=== PATIENT | female | born 1985 | race Caucasian/White ===

== ENCOUNTER 2019-08-27 05:24 | Inpatient (IN) ==
--- NOTE | 2019-08-24 17:58 | History and Physical Report ---
DATE OF ADMISSION: 08/27/2019 REASON FOR ADMISSION: Scheduled repeat section. BRIEF HISTORY: Francois is a 33-year-old G2, P1-0-0-1, currently at 38 weeks 6 days gestational age with planned section at 39 weeks 1 day gestational age. The patient presents today for preoperative visit for planned repeat low transverse section with history of one prior section. The patient's course has been otherwise complicated by history of a TIA and has been on Lovenox and is currently on heparin t.i.d. The patient reports that her prior was uncomplicated. The patient is denying any regular contractions, vaginal bleeding or leakage of fluid today and is reporting good movement. COURSE: The patient presented for care at approximately 7 weeks' gestational age. She has been normotensive throughout. She has had occasional trace proteinuria, negative glucosuria. has been complicated by history of TIA as noted above and is currently on heparin t.i.d. and was previously on Lovenox with planned Lovenox. The patient also had a prior low transverse section x1 and does desire repeat. OBSTETRICS AND GYNECOLOGIC HISTORY: The patient reports 1 prior with term delivery via . PAST MEDICAL HISTORY: Significant for prior TIA as noted above. PAST SURGICAL HISTORY: Notable for: 1. Prior . 2. Cholecystectomy. 3. Endoscopy. FAMILY HISTORY: Noncontributory to current admission. SOCIAL HISTORY: The patient denies current tobacco, alcohol or illicit drug use. PHYSICAL EXAMINATION: VITAL SIGNS: Blood pressure today 124/80. GENERAL: The patient is well appearing in no acute distress, alert and oriented x3. CARDIAC: Showed normal rate and rhythm. LUNGS: Showed no labored breathing. ABDOMEN: Soft, nontender, gravid with fundal height measuring 38 cm. heart rate was measured at 145 beats per minute. Prior Pfannenstiel incision noted. LOWER EXTREMITIES: Unremarkable bilaterally. ASSESSMENT AND PLAN: Francois is a 33-year-old 2, para 1-0-0-1 who presented for a scheduled repeat section with prior low transverse section. 1. Fetus: Reassuring heart tones today. We will obtain NST prior to proceeding to the operating room. 2. Delivery: Plan for repeat section as noted above. Consents were reviewed and signed in clinic today. We will plan for Ancef for antibiotic. 3. hemorrhage risk: Considered moderate risk. We will collect CBC and type and cross for 1 unit. Vitals within normal limits today.
[2019-08-27] MEDS ORDERED: CEFAZOLIN 2,000 MG in SYRINGE 0 ML IV SCH (06:00)
[2019-08-27] MEDS ORDERED: LACTATED RINGER'S 1,000 ML IV SCH (06:00)
[2019-08-27] MEDS ORDERED: CITRIC ACID/SODIUM CITRATE 15 ML UDC PO SCH (06:00)
[2019-08-27] MEDS ORDERED: SODIUM CHLORIDE 0.9% 250 ML IV PRN (07:11)
[2019-08-27 07:19] LABS: Basophils # (auto) 0.02 K/uL (0-0.2); Basophils % (auto) 0.2 %; Eosinophils # (auto) 0.23 K/uL (0-0.5); Eosinophils % (auto) 2.8 %; Hematocrit (blood only) 37.7 % (37-47); Immature Granulocytes # (auto) 0.08 K/uL (0.00-0.02); Lymphocytes # (auto) 1.88 K/uL (1.2-3.4); Lymphocytes % (auto) 22.6 %; Mean Corpuscular Hemoglobin 27.7 pg (25-34); Mean Corpuscular Volume 87.1 fL (80-100); Mean Platelet Volume 9.8 fL (7.4-10.4); Monocytes # (auto) 0.74 K/uL (0.11-0.59); Monocytes % (auto) 8.9 %; Neutrophils # (auto) 5.37 K/uL (1.4-6.5); Neutrophils % (auto) 64.5 %; Platelet Count 225 K/uL (130-400); RDW Coefficient of Variation 13.6 % (11.5-14.5); RDW Standard Deviation 42.9 fL (36.4-46.3); Red Blood Count 4.33 M/uL (4.2-5.4); White Blood Count 8.32 K/uL (4.8-10.8)
--- NOTE | 2019-08-27 07:19 | History & Physical Bridge Note ---
Date of Service August 27, 2019 History & Physical Bridge Note I have examined the patient, reviewed the History & Physical and in the interval since the performance of the History & Physical I have noted the following changes of clinical significance: no changes noted
[2019-08-27] MEDS ORDERED: OXYTOCIN 10 UNITS/ML VIAL ONE ×2 (07:26→08:32)
[2019-08-27] MEDS ORDERED: fentaNYL citrate 100 MCG/2 ML VIAL ONE (07:27)
[2019-08-27] MEDS ORDERED: MoRPHine SULFATE PF 1 MG/ML 10 ML AMP/VIAL ONE (07:27)
[2019-08-27 07:44] LABS: Mean Corpuscular Hgb Conc 31.8 g/dL (32-36)
[2019-08-27] MEDS ORDERED: PHENYLEPHRINE 100MCG/ML 5ML SYR ONE (08:08)
[2019-08-27] MEDS ORDERED: SENNA 8.6 MG TAB PO PRN (08:47)
[2019-08-27] MEDS ORDERED: BENZOCAINE 20% AER SPR 82.5 GM CAN EXT PRN (08:47)
[2019-08-27] MEDS ORDERED: DiphenhydrAMINE HCL 50 MG/ML VIAL IV PRN ×2 (08:47→11:16)
[2019-08-27] MEDS ORDERED: HYDROCORTISONE ACETATE 25 MG SUPP PR PRN (08:47)
[2019-08-27] MEDS ORDERED: MAGNESIUM HYDROXIDE SUSP 30 ML UDC PO PRN (08:47)
[2019-08-27] MEDS ORDERED: DIPHTHERIA/TETANUS/PERTUSSIS 0.5 ML SYR/VIAL IM ONE (08:47)
[2019-08-27] MEDS ORDERED: PROMETHAZINE HCL 25 MG in SODIUM CHLORIDE 0.9% 50 ML IV PRN ×2 (08:47→11:16)
[2019-08-27] MEDS ORDERED: ONDANSETRON INJ 2 MG/ML 2 ML VIAL IV PRN ×2 (08:47→11:16)
[2019-08-27] MEDS ORDERED: SUPERCREAM 0.870% 15 GM JAR EXT PRN (08:47)
--- NOTE | 2019-08-27 08:47 | Post Operative Brief Note ---
PG Immediate Post Op with CF Date of Surgery August 27, 2019 Pre & Post Diagnosis Operation Date: 08/27/19 07:30 <No data on this case meets the specified criteria> I identified the patient and participated in the time-out.: Yes Procedure Operation Date: 08/27/19 07:30 Actual Procedures p Section in LD - Tereso Horne MD Surgeon Tereso Horne MD Architectural Draftsperson Dr Bangura Estimated Blood Loss 600 Findings Consistent with Post-Op Diagnosis Drains Scanlon Catheter
--- NOTE | 2019-08-27 09:41 | Anesthesiology Progress Note ---
Date of Service August 27, 2019 Anesthesia Post Procedure Vital Signs Vital Signs: Temp Pulse Resp BP Pulse Ox 08/27/19 09:40 88 111/68 96 08/27/19 09:36 94 H 94 08/27/19 09:35 95 H 97 08/27/19 09:30 104 H 119/81 95 08/27/19 09:25 96 H 97 08/27/19 09:20 108 H 115/69 98 08/27/19 09:15 106 H 97 08/27/19 09:10 105 H 112/66 96 08/27/19 09:05 100 H 18 95 08/27/19 09:00 95 H 116/61 98 08/27/19 08:55 36.5 C 94 H 18 110/56 L 97 08/27/19 07:55 36.8 C 08/27/19 05:40 36.8 C 125 H 18 125/87 Transfer of Care Handoff Completed per policy Notes Mental Status: alert / awake / arousable Patient Amnestic to Procedure: Yes Nausea / Vomiting: adequately controlled Pain: adequately controlled Airway Patency, RR, SpO2: stable & adequate BP & HR: stable & adequate Hydration State: stable & adequate Neuraxial Anesthesia: was administered and sensory block is resolving Anesthetic Complications: no major complications apparent
[2019-08-27] MEDS: KETOROLAC 30 MG/ML VIAL IV PRN ×3 (10:02→23:30)
[2019-08-27] MEDS ORDERED: ACETAMINOPHEN 1,000 MG/100 ML VIAL IV STA (10:30)
--- NOTE | 2019-08-27 10:51 | Operative Report (OR) ---
DATE OF OPERATION: 08/27/2019 PROCEDURE: Repeat low transverse section. SURGEON: Tereso Horne MD. CRITICAL POWER INSTALL TECHNICIAN: Dr. Jed Bangura. PREOPERATIVE DIAGNOSES: 1. Single intrauterine at 39+ weeks gestational age. 2. History of prior section, desiring repeat. 3. History of transient ischemic attack on Lovenox. POSTOPERATIVE DIAGNOSES: 1. Single intrauterine at 39+ weeks gestational age. 2. History of prior section, desiring repeat. 3. History of transient ischemic attack on Lovenox. 4. Status post delivery. ESTIMATED BLOOD LOSS: 600 mL. DRAINS: Scanlon catheter. FLUIDS: Continuous lactated ringer. URINE OUTPUT: Per Scanlon catheter. COMPLICATIONS: None. FINDINGS: Viable male infant with weight of 7 pounds 8.8 ounces and Apgars of 7 and 8 at 1 and 5 minutes respectively. DESCRIPTION OF PROCEDURE: The patient was taken to the operating room after consents were ensured. Upon presentation, she was properly identified. Spinal anesthesia was obtained without difficulty. The patient was then prepped and draped in normal sterile fashion. A preprocedural timeout was performed. A Pfannenstiel incision was then made with a knife. This was carried down to underlying fascia with the Bovie. The fascia was nicked at the midline with a knife. The fascia was then extended laterally in each direction with pickups and Chavez scissors. The Kochers were then used to grasp the superior aspect of the fascia, which was dissected off the underlying rectus muscles using blunt dissection and the knife. The inferior aspect of the fascia was then grasped with Kochers x2 and elevated off the underlying rectus muscles using blunt dissection and Chavez scissors. A midline was then entered bluntly and noted to be free of adhesions. Abdomen was then placed on stretch to make adequate room for delivery. A bladder blade was then inserted and the bladder flap was created. A low transverse uterine incision was then made with a knife. The head of the was just noted to be in cephalic position and was delivered through the hysterotomy without difficulty. Body and shoulders quickly followed. was noted to be vigorous soon after delayed delivery. Cord was then double clamped and cut. Cord blood was obtained. Attention was then turned to deliver the placenta, which was delivered intact with 3-vessel cord with gentle cord traction and uterine massage. The uterus was exteriorized and several passes were made to remove any remaining membranes with a wet lap. The hysterotomy was then closed with 0 Vicryl with a continuous running locked stitch. A second imbricating layer was then performed. The hysterotomy was noted to be hemostatic. The uterus was then replaced and dissected. The posterior cul-de-sac was cleaned of clots and debris and the uterus was returned to the maternal abdomen. The right and left pericolic gutters were cleaned of clots and debris and noted to be hemostatic. The hysterotomy was reinspected and noted to be hemostatic. The subcutaneous muscle and fascial layers were inspected and noted to be hemostatic. The fascia was then closed with 0 Vicryl in continuous running stitch. The subcutaneous layers were reapproximated with 2-0 plain in a continuous running stitch. Skin was reapproximated with 3-0 Vicryl on a Barron needle in subcuticular stitch. Needle, sponge and instrument counts were correct at the completion of the case with mother and stable in the immediate post-delivery period. I attest to the content of the Intraoperative Record and any orders documented therein. Any exception s are noted below.
[2019-08-27] MEDS ORDERED: NALOXONE HCL 0.08 MG in SYRINGE 1.8 ML IV PRN (11:16)
[2019-08-27] MEDS ORDERED: ePHEDrine sulfate 50 MG/ML AMP IV PRN (11:16)
[2019-08-27] MEDS ORDERED: NALOXONE HCL 1 MG in SODIUM CHLORIDE 0.9% 1000ML 1,000 ML IV PRN (11:16)
[2019-08-27] MEDS ORDERED: LACTATED RINGER'S 500 ML IV PRN (11:16)
[2019-08-27] MEDS ORDERED: MoRPHine SULFATE PF 1 MG/ML 10 ML AMP/VIAL INT SPINAL ONE (11:16)
[2019-08-27] MEDS ORDERED: NALOXONE HCL 0.4 MG/1 ML VIAL/CARP IV PRN (11:16)
[2019-08-27] MEDS ORDERED: DC INTRASPINAL MORPHINE SCH (11:30)
[2019-08-27] MEDS ORDERED: NO NARCOTICS OR SEDATIVES SCH (11:30)
[2019-08-27] MEDS ORDERED: SODIUM CHLORIDE 0.9% 1000ML 1,000 ML IV SCH (11:30)
[2019-08-27] MEDS ORDERED: OXYTOCIN 30 UNITS/500 ML BAG IV PRN ×2 (12:56→13:46)
[2019-08-27] MEDS: SIMETHICONE 80 MG CHEW PO SCH ×3 (13:18→23:36)
[2019-08-27] MEDS: LACTATED RINGER'S 1,000 ML IV SCH ×3 (14:17→23:29)
[2019-08-27] MEDS ORDERED: LACTATED RINGER'S 1,000 ML IV ONE (14:50)
[2019-08-27] MEDS: DOCUSATE SODIUM 100 MG CAP PO SCH (23:36)
[2019-08-28] MEDS: OXYCODONE/ACETAMINOPHEN 5mg/325mg TAB PO PRN ×5 (05:16→22:17)
[2019-08-28 05:44] LABS: Basophils # (auto) 0.01 K/uL (0-0.2); Basophils % (auto) 0.1 %; Eosinophils # (auto) 0.18 K/uL (0-0.5); Eosinophils % (auto) 1.8 %; Hematocrit (blood only) 33.3 % (37-47); Hemoglobin 10.5 g/dL (12.0-16.0); Immature Granulocytes # (auto) 0.05 K/uL (0.00-0.02); Immature Granulocytes % (auto) 0.5 %; Lymphocytes # (auto) 1.73 K/uL (1.2-3.4); Lymphocytes % (auto) 17.7 %; Mean Corpuscular Hgb Conc 31.5 g/dL (32-36); Mean Corpuscular Volume 88.8 fL (80-100); Mean Platelet Volume 9.5 fL (7.4-10.4); Monocytes # (auto) 0.73 K/uL (0.11-0.59); Monocytes % (auto) 7.5 %; Neutrophils # (auto) 7.09 K/uL (1.4-6.5); Neutrophils % (auto) 72.4 %; Platelet Count 185 K/uL (130-400); RDW Coefficient of Variation 13.8 % (11.5-14.5); RDW Standard Deviation 44.9 fL (36.4-46.3); Red Blood Count 3.75 M/uL (4.2-5.4); White Blood Count 9.79 K/uL (4.8-10.8)
--- NOTE | 2019-08-28 07:22 | Obstetrical Progress Note ---
Date of Service August 28, 2019 Assessment & Plan (1) Encounter for visit: 33yo day 1 S/P repeat . Doing well. ROutine care. Patient on Lovenox 40U daily for at least 6 weeks . Lovenox restarted this am Subjective Ambulation: ambulating normally Voiding: no voiding problems Passing Gas:: No Diet Tolerance:: clear liquids Lochia:: Small Feeding Type:: breast feeding Scanlon removed this am Physical Exam Gastrointestinal (Abdomen) Percussion/Palpation: abdomen soft; abdomen nontender, no guarding and abdomen not rigid Incision C/D/I Results & Data ([facility]) Vital Signs (Past 12 Hours) Vital Signs Temp Pulse Resp BP Pulse Ox 08/28/19 04:50 36.6 C 77 14 99/64 L 97 08/28/19 02:00 14 98 08/28/19 01:15 16 97 08/28/19 00:20 14 99 08/27/19 23:45 36.3 C L 61 14 97/67 L 100 08/27/19 21:35 14 98 08/27/19 20:10 16 98 08/27/19 19:40 36.6 C 80 16 101/65 98 08/27/19 19:20 16 99
[2019-08-28] MEDS: PRENATAL VITAMIN 1 TAB PO SCH (09:09)
[2019-08-28] MEDS: FERROUS SULFATE 325 MG TAB PO SCH (09:09)
[2019-08-28] MEDS: SIMETHICONE 80 MG CHEW PO SCH ×4 (09:09→20:28)
[2019-08-28] MEDS: DOCUSATE SODIUM 100 MG CAP PO SCH ×2 (09:09→20:28)
[2019-08-28] MEDS: IBUPROFEN 600 MG TAB PO PRN ×4 (09:10→22:17)
[2019-08-28] MEDS: ENOXAPARIN INJ 40 MG/0.4 ML SYR SQ SCH (09:11)
[2019-08-28] MEDS ORDERED: bisacodyL 5 MG TABEC PO SCH (20:00)
[2019-08-29] MEDS: IBUPROFEN 600 MG TAB PO PRN ×3 (02:21→12:27)
[2019-08-29] MEDS: OXYCODONE/ACETAMINOPHEN 5mg/325mg TAB PO PRN ×3 (02:22→12:28)
[2019-08-29 06:15] LABS: Hematocrit (blood only) 32.3 % (37-47); Hemoglobin 10.4 g/dL (12.0-16.0)
--- NOTE | 2019-08-29 07:04 | Obstetrical Progress Note ---
Date of Service August 29, 2019 Assessment & Plan (1) Protein S deficiency affecting , antepartum: Plan lovenox for 6-8 weeks. She has enough at home for now. (2) S/P section: Doing well. Desires d/c today. Instructions reviewed. Day #:: 2 Subjective Ambulation: ambulating normally Voiding: no voiding problems Passing Gas:: Yes Diet Tolerance:: regular diet Lochia:: Small Feeding Type:: breast feeding Pain controlled Physical Exam Constitutional WD/WN, vitals as above Cardiovascular Extremities: no calf tenderness and no edema Gastrointestinal (Abdomen) soft, nt, nd ff/appro tender at u incision c/d/i Psychiatric A+Ox3, euthymic affect Results & Data ([facility]) Vital Signs (Past 12 Hours) Vital Signs Temp Pulse Resp BP 08/28/19 23:20 37.2 C 79 18 109/72
[2019-08-29] MEDS: PRENATAL VITAMIN 1 TAB PO SCH (07:57)
[2019-08-29] MEDS: DOCUSATE SODIUM 100 MG CAP PO SCH (07:57)
[2019-08-29] MEDS: SIMETHICONE 80 MG CHEW PO SCH (07:57)
[2019-08-29] MEDS: FERROUS SULFATE 325 MG TAB PO SCH (07:57)
[2019-08-29] MEDS ORDERED: bisacodyL 10 MG SUPP PR PRN (08:48)
[2019-08-29] MEDS: ENOXAPARIN INJ 40 MG/0.4 ML SYR SQ SCH (08:51)
--- NOTE | 2019-09-11 14:10 | Discharge Summary (DS) ---
PROCEDURES WHILE ADMITTED: Repeat low transverse section. HOSPITAL COURSE: The patient was admitted for a planned repeat low transverse section. The procedure was performed without complication. The patient remained inhouse recovery until day #2, at which time she was noted to be stable for discharge and the patient desired discharge at that time. The patient was discharged home with both written and verbal discharge instructions with planned follow up at 6 weeks or earlier as needed.
== END 2019-08-29 13:45 | disposition home or self-care (01) | DRG 787 ==
LOC: ASU 05:24 → 4S1 05:25 → 4S2 11:20